=== PATIENT | male | born 1990 | race Caucasian/White ===

== ENCOUNTER 2020-11-04 23:55 | Emergency (ER) | payer MEDICAID ==
[~2020-11-04] VITALS: Ht 177.8 cm; Wt 68.2 kg
[~2020-11-04 23:55] MED LIST: ALBU6.7H9 INH; CLIN-97 PO; NO HOME MEDS
[2020-11-05] MEDS ORDERED: albuterol 2.5 MG/3 ML nebule NEB ONE ×2 (00:05)
[2020-11-05] MEDS ORDERED: dexamethasone sod phosphate 10mg/ml inj IM STA (00:12)
[2020-11-05] MEDS ORDERED: triamcinolone acetonide 40mg/ml inj IM ONE (00:15)
[2020-11-05] MEDS ORDERED: albuterol 2.5 MG/3 ML nebule CONTNEB PRN (00:15)
[2020-11-05 01:01] VITALS: BP 123/68
[2020-11-05] MEDS ORDERED: ALBU8.5H8 INH (01:35)
== END 2020-11-05 01:51 | disposition home or self-care (01) ==
LOC: ER 23:56
DX: J45.901 Unspecified asthma with (acute) exacerbation (principal); R06.02 Shortness of breath; F11.90 Opioid use, unspecified, uncomplicated; Z56.0 Unemployment, unspecified; Z79.2 Long term (current) use of antibiotics; Z79.899 Other long term (current) drug therapy
CPT/HCPCS: 93005; 94640; 94644; 96372; 99285; J1100; J3301; 94760; A7015

== ENCOUNTER 2021-01-26 11:44 | Emergency (ER) | payer MEDICAID ==
[~2021-01-26] VITALS: Ht 175.3 cm; Wt 68.2 kg
[~2021-01-26 11:44] MED LIST changes: +ALBU8.5H8 INH
[2021-01-26] MEDS ORDERED: albuterol 2.5 MG/3 ML nebule NEB ONE (12:05)
[2021-01-26] MEDS ORDERED: predniSONE 20 mg tablet PO ONE (12:15)
[2021-01-26] MEDS ORDERED: dexamethasone sod phosphate 10mg/ml inj IM STA (12:25)
[2021-01-26] MEDS ORDERED: ALBU8.5H8 INH (12:30)
[2021-01-26 12:38] VITALS: BP 116/76
[2021-01-26] MEDS ORDERED: PRED10TA23 PO (12:47)
== END 2021-01-26 13:00 | disposition home or self-care (01) ==
LOC: ER 11:44
DX: J45.901 Unspecified asthma with (acute) exacerbation (principal); R06.02 Shortness of breath; Z56.0 Unemployment, unspecified; Z79.2 Long term (current) use of antibiotics; Z79.899 Other long term (current) drug therapy
CPT/HCPCS: 93005; 94640; 96372; 99283; J1100; J7512; 94760

== ENCOUNTER 2021-09-09 06:19 | Emergency (ER) | payer MEDICAID ==
[~2021-09-09] VITALS: Ht 175.3 cm; Wt 68.2 kg
[~2021-09-09 06:19] MED LIST changes: +ALBU8.5H17 INH; -ALBU8.5H8 INH
[2021-09-09 06:29] VITALS: BP 121/79
[2021-09-09] MEDS ORDERED: albuterol 2.5 MG/3 ML nebule NEB ONE (07:00)
[2021-09-09] MEDS ORDERED: ipratropium/albuterol 3ml nebule NEB ONE (07:00)
[2021-09-09] MEDS ORDERED: ALBU18HF2 INH (07:01)
== END 2021-09-09 07:25 | disposition home or self-care (01) ==
LOC: ER 06:20
DX: J45.901 Unspecified asthma with (acute) exacerbation (principal)
CPT/HCPCS: 94640; 94760; 99285

== ENCOUNTER 2021-11-09 08:24 | Emergency (ER) | payer MEDICAID ==
[~2021-11-09] VITALS: Ht 180.3 cm; Wt 68.1 kg
[~2021-11-09 08:24] MED LIST changes: +ALBU18HF2 INH
[2021-11-09] MEDS ORDERED: predniSONE 20 mg tablet PO ONE (08:30)
[2021-11-09] MEDS ORDERED: terbutaline 1 mg/ml inj SQ STA (08:50)
[2021-11-09] MEDS ORDERED: albuterol 2.5 MG/3 ML nebule CONTNEB PRN (08:50)
[2021-11-09] MEDS ORDERED: ALBU6.7H9 INH (08:58)
[2021-11-09] MEDS ORDERED: PRED20TA PO (08:58)
--- NOTE | 2021-11-09 09:59 | NUR ---
Pt is getting an extended breathing treatment outside of the [facility] area. Continues to have wheezes troughout all hernandez.
[2021-11-09 10:08] VITALS: BP 130/80
--- NOTE | 2021-11-09 10:50 | NUR ---
Pt not in [facility] area.
== END 2021-11-09 11:31 | disposition home or self-care (01) ==
LOC: ER 08:24
DX: J45.901 Unspecified asthma with (acute) exacerbation (principal); Z20.822 Contact with and (suspected) exposure to COVID-19; R06.02 Shortness of breath; F11.90 Opioid use, unspecified, uncomplicated; Z56.0 Unemployment, unspecified; Z79.2 Long term (current) use of antibiotics; Z79.899 Other long term (current) drug therapy
CPT/HCPCS: 71045; 87635; 94640; 94644; 96372; 99285; C9803; J3105; J7512; 94760; A7015

== ENCOUNTER 2021-12-16 09:43 | Emergency (ER) | payer MEDICAID ==
[~2021-12-16] VITALS: Ht 175.3 cm; Wt 68.2 kg
[2021-12-16] MEDS ORDERED: terbutaline 1 mg/ml inj SQ STA (09:45)
[2021-12-16] MEDS ORDERED: dexamethasone sod phosphate 10mg/ml inj IV STA (09:45)
[2021-12-16] MEDS ORDERED: ipratropium/albuterol 3ml nebule NEB ONE (09:45)
[2021-12-16] MEDS ORDERED: magnesium 2GM in 50ml NS 50 ML IV ONE (09:45)
[2021-12-16] MEDS ORDERED: albuterol 2.5 MG/3 ML nebule CONTNEB PRN ×3 (09:50→11:15)
[2021-12-16 10:09] LABS: ABG BASE EXCESS -0.2 mmol/L (-2.0-2.0); ABG HCO3 24.6 mmol/L (22.0-26.0); ABG OXYGEN SATURATION 98.7 % (94-97); ABG PCO2 (T) 39.9 mmHg (35.0-48.0); ALLEN'S TEST POSITIVE; FCOHb 0.1 % (0.0-3.9); FLOW 9 L/min; FMetHb 0.1 % (0.0-1.5); FO2Hb 98.5 % (94-97); PATIENT TEMPERATURE 36.5; TOTAL HEMOGLOBIN 10.1 G/dl (14.0-18.0)
[2021-12-16 10:19] LABS: BASOPHILS % (AUTO) 0.9 % (0-1); EOSINOPHILS # (AUTO) 0.2 X10'3 (0-0.9); EOSINOPHILS % (AUTO) 4.7 % (0-6); HEMATOCRIT 28.4 % (42.0-52.0); HEMOGLOBIN 8.9 g/dl (14.0-17.9); LYMPHOCYTES # (AUTO) 0.8 X10'3 (1.1-4.8); LYMPHOCYTES % (AUTO) 17.7 % (21-51); MEAN CORPUSCULAR HEMOGLOBIN 21.7 PG (27.0-31.0); MEAN CORPUSCULAR HGB CONC 31.4 g/dL (33.0-36.5); MEAN PLATELET VOLUME 7.8 FL (7.4-10.4); MONOCYTES # (AUTO) 0.7 X10'3 (0-0.9); NEUTROPHILS # (AUTO) 2.9 X10'3 (1.8-7.7); NEUTROPHILS % (AUTO) 61.7 % (42-75); PLATELET COUNT 309 X10'3 (140-440); RED BLOOD COUNT 4.12 X10'6 (4.70-6.10); RED CELL DISTRIBUTION WIDTH 15.5 % (11.5-14.5); WHITE BLOOD COUNT 4.8 X10'3 (4.5-11.0)
[2021-12-16 10:38] LABS: ALBUMIN 3.1 G/DL (3.4-5.0); ALBUMIN/GLOBULIN RATIO 0.7 (1.1-1.5); ALKALINE PHOSPHATASE 101 IU/L (46-116); ANION GAP 8 (8-16); BLOOD UREA NITROGEN 10 MG/DL (7-18); BUN/CREATININE RATIO 14.9 (5.4-32.0); CALCIUM 8.6 MG/DL (8.5-10.1); CHLORIDE 100 MMOL/L (99-107); CREATININE 0.67 MG/DL (0.60-1.10); GLUCOSE 111 MG/DL (70-104); POTASSIUM 3.7 MMOL/L (3.5-5.1); SODIUM 135 MMOL/L (135-145); TOTAL PROTEIN 7.5 G/DL (6.4-8.2); eGFR > 90 ML/MIN
[2021-12-16 11:53] LABS: ALANINE AMINOTRANSFERASE 82 U/L (12-78); ASPARTATE AMINO TRANSFERASE 54 U/L (10-37); BILIRUBIN,TOTAL 0.2 MG/DL (0.1-1.0)
[2021-12-16] MEDS ORDERED: PRED20TA PO (13:49)
[2021-12-16] MEDS ORDERED: ALBU18HF2 INH (13:49)
[2021-12-16] MEDS ORDERED: DOXY100C43 PO (13:49)
[2021-12-16 14:10] VITALS: BP 128/81
[2021-12-17] MEDS ORDERED: INHA1EAC9 (23:04)
[2021-12-17] MEDS ORDERED: INHA1EAC9 IH (23:09)
== END 2021-12-16 14:11 | disposition home or self-care (01) ==
LOC: ER 09:44
DX: J45.901 Unspecified asthma with (acute) exacerbation (principal); Z20.822 Contact with and (suspected) exposure to COVID-19; R06.02 Shortness of breath; R06.03 Acute respiratory distress; F17.200 Nicotine dependence, unspecified, uncomplicated; F11.90 Opioid use, unspecified, uncomplicated; Z56.0 Unemployment, unspecified; Z79.899 Other long term (current) drug therapy; Z79.2 Long term (current) use of antibiotics
CPT/HCPCS: 36415; 36600; 71045; 80053; 82803; 83880; 85018; 85025; 85379; 87635; 93005; 94640; 94644; 94645; 96365; 96372; 96375; 99291; C9803; J1100; J3105; J3475; 94760; A7015

== ENCOUNTER 2021-12-17 19:13 | Emergency (ER) | payer MEDICAID ==
[~2021-12-17] VITALS: Ht 175.3 cm; Wt 65.0 kg
[~2021-12-17 19:13] MED LIST changes: +DOXY100C43 PO; +PRED20TA PO
[2021-12-17] MEDS ORDERED: albuterol 2.5 MG/3 ML nebule NEB ONE (19:45)
--- NOTE | 2021-12-17 20:27 | NUR ---
PT DENIES SOB AFTER NEB TX
[2021-12-17] MEDS ORDERED: albuterol 2.5 MG/3 ML nebule CONTNEB PRN (20:45)
--- NOTE | 2021-12-17 21:28 | NUR ---
PT TOLERATING BREATHING TX WELL AND REPORTS SOME FURTHER RELIEF
[2021-12-17] MEDS ORDERED: INHA1EAC9 (23:04)
[2021-12-17] MEDS ORDERED: INHA1EAC9 IH (23:09)
[2021-12-17 23:32] VITALS: BP 113/74
== END 2021-12-17 23:33 | disposition home or self-care (01) ==
LOC: ER 19:14
DX: J45.901 Unspecified asthma with (acute) exacerbation (principal); Z79.899 Other long term (current) drug therapy
CPT/HCPCS: 93005; 94640; 94760; 99285; A7015

== ENCOUNTER 2022-04-15 19:34 | Emergency (ER) | payer MEDICAID ==
[~2022-04-15] VITALS: Ht 177.8 cm; Wt 74.5 kg
[~2022-04-15 19:34] MED LIST changes: -DOXY100C43 PO; +INHA1EAC9 IH; -PRED20TA PO
[2022-04-15 19:56] VITALS: BP 140/83
[2022-04-15] MEDS ORDERED: ipratropium/albuterol 3ml nebule NEB ONE (20:05)
[2022-04-15] MEDS ORDERED: dexamethasone sod phosphate 10mg/ml inj PO STA (20:07)
[2022-04-15] MEDS ORDERED: ALBUTEROL INHALER 1 PUFF/90 MCG INHALation IH PRN (20:10)
== END 2022-04-15 21:19 | disposition home or self-care (01) ==
LOC: ER 19:34
DX: J45.901 Unspecified asthma with (acute) exacerbation (principal); Z56.0 Unemployment, unspecified; Z79.899 Other long term (current) drug therapy
CPT/HCPCS: 94640; 99284; J1100; 94760; 99283

== ENCOUNTER 2022-07-07 12:07 | Emergency (ER) | payer MEDICAID ==
[~2022-07-07] VITALS: Ht 175.3 cm; Wt 68.0 kg
[~2022-07-07 12:07] MED LIST changes: +ALBU6.7H14 INH; -ALBU6.7H9 INH
[2022-07-07 13:07] VITALS: BP 128/69
[2022-07-07] MEDS ORDERED: ipratropium/albuterol 3ml nebule NEB ONE (13:25)
[2022-07-07] MEDS ORDERED: methylPREDNISolone sod succ 125mg/2ml vial IM ONE (13:25)
[2022-07-07] MEDS ORDERED: METH4TAB81 PO (14:35)
[2022-07-07] MEDS ORDERED: ALBU8.5H17 IH (14:35)
== END 2022-07-07 14:43 | disposition home or self-care (01) ==
LOC: ER 12:07
DX: J45.901 Unspecified asthma with (acute) exacerbation (principal); Z59.00 Homelessness unspecified; Z79.899 Other long term (current) drug therapy
CPT/HCPCS: 94640; 96372; 99283; J2930